=== PATIENT | female | born 1955 | race Caucasian/White ===

== ENCOUNTER 2017-06-11 06:58 | Day surgery (SDC) | payer BC, OTHER ==
[2017-06-11] MEDS ORDERED: Lactated Ringers 1,000 ML IV SCH (07:00)
[2017-06-11] MEDS ORDERED: Propofol 200 MG/20 ML SDV ONE (08:28)
[2017-06-11] MEDS ORDERED: fentaNYL 100 MCG/2 ML SDV ONE (08:28)
[2017-06-11] MEDS ORDERED: Midazolam 1 MG/ML 2 ML SDV ONE (08:28)
[2017-06-11 10:10] VITALS: BP 134/55
--- NOTE | 2017-06-11 10:27 | OR ---
DATE OF PROCEDURE: 06/11/2017 PREOPERATIVE DIAGNOSIS: Colon cancer screening. POSTOPERATIVE DIAGNOSIS: Diverticulosis. PROCEDURE: Colonoscopy to the cecum. QUALITY ASSURANCE ENGINEER: Hesham Castaneda MS-3. ANESTHESIA: IV anesthesia with monitored anesthesia care. INDICATION: This 61-year-old white female is referred for a colonoscopy for colon cancer screening. She has never had a colonoscopic exam. I counseled her for the procedure including risks and alternatives, and she gave her informed consent to proceed. DESCRIPTION OF PROCEDURE: The patient was placed in the left lateral decubitus position. IV anesthesia was administered by the Anesthesia Service. Time-out was held. A rectal exam was performed, which was unremarkable. The flexible video Olympus colonoscope was introduced through her anus, up her rectum and out her colon, all the way to the cecum. Once the cecum was reached, the scope was slowly withdrawn, examining the mucosa throughout. No mucosal abnormalities were noted until we reached the left colon. Here and in the sigmoid colon, we saw few scattered diverticula. There was no bleeding or inflammation associated with any of them. The scope was retroflexed in the rectum with the distal rectum appearing unremarkable. The scope was straightened and removed. She tolerated the procedure well. Everardo Geller MD /[id number]
== END 2017-06-11 10:13 | disposition home or self-care (01) ==
LOC: JP.SDS 06:58
PROVIDERS: ATTEND Surgery
DX: Z12.11 Encounter for screening for malignant neoplasm of colon (principal); K57.30 Diverticulosis of large intestine without perforation or abscess without bleeding; I10 Essential (primary) hypertension; K21.9 Gastro-esophageal reflux disease without esophagitis; E66.9 Obesity, unspecified
CPT/HCPCS: J2250; J2704; J3010; J7120